=== PATIENT | male | born 1960 | race Caucasian/White ===

== ENCOUNTER 2021-08-10 06:41 | Day surgery (SDC) | payer OTHER, SELFPAY ==
[~2021-08-10] VITALS: Ht 177.8 cm; Wt 104.3 kg
[2021-08-10] MEDS ORDERED: diphenhydrAMINE 50 MG/ML VIAL ONE (08:50)
[2021-08-10] MEDS ORDERED: fentaNYL citrate 0.05 MG/ML VIAL ONE ×2 (08:50→09:16)
[2021-08-10] MEDS ORDERED: MIDAZOLAM 5 MG/5 ML VIAL ONE (08:50)
[2021-08-10] MEDS ORDERED: MIDAZOLAM 2 MG/2 ML VIAL IVP ONE (09:25)
[2021-08-10] MEDS ORDERED: fentaNYL citrate 0.05 MG/ML VIAL IVP ONE (09:25)
== END 2021-08-10 10:29 | disposition home or self-care (01) ==
LOC: MOR 06:41 → MMU 06:42 → MOR 10:29
PROVIDERS: ATTEND Internal Medicine Gastroenterology
DX: Z12.11 Encounter for screening for malignant neoplasm of colon (principal); K57.30 Diverticulosis of large intestine without perforation or abscess without bleeding; K44.9 Diaphragmatic hernia without obstruction or gangrene; F17.210 Nicotine dependence, cigarettes, uncomplicated; I10 Essential (primary) hypertension; Z79.899 Other long term (current) drug therapy; Z80.0 Family history of malignant neoplasm of digestive organs; Z20.822 Contact with and (suspected) exposure to COVID-19
CPT/HCPCS: 43235; 87426; G0105; J2250; J3010; J1200